=== PATIENT | male | born 1975 | race Caucasian/White ===

== ENCOUNTER 2017-12-13 18:18 | Emergency (ER) | payer SELFPAY ==
[~2017-12-13] VITALS: Ht 175.2 cm; Wt 77.1 kg
[~2017-12-13 18:18] MED LIST: 'PARAFON FORTE500 M1 PO; CEPHALEXIN500 MG PO; CLOTRIM ANTIFUNGAL1% T; HYDROCODONE BIT1 T11 PO; IMITREX100 MG PO; LIDEX0.05% T; MEDICINE S1.75 GM/30 PO; MOTRIN600 MG PO; Motrin,Rufen800 MG PO; NAPROSYN500 MG PO; NORTRIPTYLINE25 MG PO; PREDNICOT20 MG PO; PREDNISONE; TESSALON PERLE100 M1 PO; VICODIN 5/500 505 MG PO; VISTARIL25 MG PO; ZITHROMAX Z PA250 MG PO
[2017-12-13] MEDS ORDERED: NAPROSYN500 MG PO (18:47)
[2017-12-13] MEDS ORDERED: KEFLEX500 M1 PO (18:47)
== END 2017-12-13 19:42 | disposition home or self-care (01) ==
LOC: ED 18:18
DX: S61.211A Laceration without foreign body of left index finger without damage to nail, initial encounter (principal); R03.0 Elevated blood-pressure reading, without diagnosis of hypertension; Z23 Encounter for immunization; Z79.899 Other long term (current) drug therapy; W26.0XXA Contact with knife, initial encounter; Y93.89 Activity, other specified; Y92.89 Other specified places as the place of occurrence of the external cause; Y99.9 Unspecified external cause status

== ENCOUNTER → 2021-07-04 | Outpatient (CLI) | payer SELFPAY ==
[~2021-07-04] MED LIST changes: +KEFLEX500 M1 PO
== END | disposition home or self-care (01) ==
LOC: RESCLI 03:38
PROVIDERS: ATTEND Internal Medicine
DX: F41.1 Generalized anxiety disorder (principal); Z79.899 Other long term (current) drug therapy

== ENCOUNTER 2023-05-26 00:57 | Emergency (ER) | payer SELFPAY ==
[~2023-05-26] VITALS: Ht 175.2 cm
[2023-05-26 01:48] LABS: BASO # 0.1 10*3/uL (0.0-0.1); BASO % 1.6 % (0.0-1.0); EOS # 0.3 10*3/uL (0.0-0.4); EOS % 4.8 % (1.0-4.0); HEMATOCRIT 45.3 % (42.0-52.0); LYMPH # 1.4 10*3/uL (1.3-4.4); LYMPH % 25.9 % (27.0-41.0); MEAN CORPUSCULAR HGB 33.6 pg (27.0-31.0); MEAN CORPUSCULAR HGB CONC 33.6 g/dl (33.0-37.0); MEAN PLATELET VOLUME 10.2 fl (9.6-12.3); MONO # 0.7 10*3/uL (0.1-1.0); MONO % 12.9 % (3.0-9.0); NEUT % 54.6 % (47.0-73.0); PLATELET COUNT AUTOMATED 187 10*3/uL (130-400); RED BLOOD COUNT 4.53 10*6/uL (4.50-5.90); RED CELL DISTRI WIDTH 13.8 % (0-14.5); WHITE BLOOD COUNT 5.6 10*3/uL (4.8-10.8)
[2023-05-26] MEDS ORDERED: AMOX-CLAV 875-1 EACH PO (02:11)
[2023-05-26 02:40] LABS: ALKALINE PHOSPHATASE 51 U/L (46-116); BUN 13 mg/dl (9-23); CHLORIDE 109 mmol/L (98-107); LIPASE 38 U/L (12-53); POTASSIUM 4.3 mmol/L (3.4-5.1); SGPT/ALT 26 U/L (10-49)
== END 2023-05-26 02:22 | disposition home or self-care (01) ==
LOC: ED 00:57
PROVIDERS: Internal Medicine
DX: G44.009 Cluster headache syndrome, unspecified, not intractable (principal); J32.9 Chronic sinusitis, unspecified; M54.2 Cervicalgia